=== PATIENT | male | born 1995 | race African-American/Black ===

== ENCOUNTER 2021-08-02 20:04 | Emergency (ER) | payer OTHER ==
[2021-08-02 21:11] LABS: BASOPHILS % (AUTO) 0.5 %; EOSINOPHILS % (AUTO) 0.6 %; HCT - HEMATOCRIT 42.9 % (42.0-52.0); HGB - HEMOGLOBIN 13.6 g/dL (14.0-18.0); LYMPHOCYTES # (AUTO) 2.1 10^3/uL (1.5-3.5); LYMPHOCYTES % (AUTO) 32.4 %; MEAN CORPUSCULAR HEMOGLOBIN 24.4 pg (27.0-31.0); MEAN CORPUSCULAR HGB CONC 31.7 g/dL (32.0-36.0); MEAN CORPUSCULAR VOLUME 76.9 fL (80.0-94.0); MEAN PLATELET VOLUME 10.6 fL (7.4-11.4); MONOCYTES # (AUTO) 0.7 10^3/uL (0.0-1.0); MONOCYTES % (AUTO) 10.3 %; NEUTROPHILS # (AUTO) 3.7 10^3/uL (1.5-6.6); NEUTROPHILS % (AUTO) 55.9 %; PLT - PLATELET COUNT 215 10^3/uL (130-450); RED BLOOD COUNT 5.58 10^6/uL (4.70-6.10); RED CELL DISTRIBUTION WIDTH 13.8 % (12.0-15.0); WHITE BLOOD COUNT 6.6 x10^3/uL (4.8-10.8)
[2021-08-02 21:22] LABS: ALBUMIN 4.8 g/dL (3.2-5.5); ALBUMIN/GLOBULIN RATIO 1.6 (1.0-2.2); BILIRUBIN,TOTAL 0.5 mg/dL (0.2-1.0); CALCIUM 9.7 mg/dL (8.5-10.3); CREATININE 1.4 mg/dL (0.6-1.2); POTASSIUM 3.8 mmol/L (3.5-5.0); TOTAL PROTEIN 7.8 g/dL (6.7-8.2)
[2021-08-02 21:25] LABS: BILIRUBIN,URINE NEGATIVE (NEGATIVE); GLUCOSE, URINE (UA) NEGATIVE (NEGATIVE); KETONES,URINE (UA) NEGATIVE (NEGATIVE); LEUKOCYTE ESTERASE, URINE NEGATIVE (NEGATIVE); NITRITE,URINE NEGATIVE (NEGATIVE); OCCULT BLOOD,URINE NEGATIVE (NEGATIVE); PROTEIN,URINE NEGATIVE (NEGATIVE); UROBILINOGEN,URINE 0.2 (NORMAL) E.U./dL (NORMAL)
[2021-08-02 21:26] LABS: CLARITY,URINE CLEAR (CLEAR)
--- NOTE | 2021-08-02 21:40 | ED Physician Documentation ---
PD HPI URI - Stated complaint Stated Complaint: ABD PX/HEADACHE/NAUSEA - Chief complaint Chief Complaint: General - History obtained from History obtained from: Patient - History of Present Illness Timing - onset: How many days ago (4) Timing duration: Days (4) Timing details: Gradual onset, Still present Associated symptoms: Chills, Sweats, Nasal congestion, Rhinorrhea, Productive cough, Chest pain, Dyspnea, Other (abdominal pain and fatigue) Contributing factors: Sick contact (room mate with COVID testing) Improves by: Rest, Medication Similar symptoms before: Has not had sx before Recently seen: Not recently seen - Additional information Additional information: 26-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 He has been taking some cold preparations for and this seems to have helped a bit. The patient has noted that he seems particularly fatigued when this is not normal for him. 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 He is immunized.He describes a cough with production of a slight amount of green phlegm. He has had chills and no fever.He periodically has had severe headache as well. Review of Systems Constitutional: reports: Chills, Myalgias, Fatigue. denies: Fever Eyes: denies: Decreased vision Ears: denies: Ear pain Nose: reports: Rhinorrhea / runny nose, Congestion Throat: denies: Sore throat Cardiac: denies: Chest pain / pressure, Palpitations Respiratory: reports: Dyspnea, Cough GI: reports: Abdominal Pain, Nausea. denies: Vomiting, Constipation, Diarrhea : denies: Dysuria, Frequency Skin: denies: Rash Musculoskeletal: denies: Neck pain, Back pain, Extremity pain Neurologic: denies: Generalized weakness, Focal weakness, Numbness PD PAST MEDICAL HISTORY - Past Medical History Cardiovascular: None Respiratory: None Neuro: Migraines Endocrine/Autoimmune: None GI: None : None Psych: None Musculoskeletal: Chronic back pain Derm: None - Past Surgical History Past Surgical History: No - Present Medications Home Medications: Ambulatory Orders Medication Instructions Recorded Confirmed Amox/Clav 875/125 [Augmentin] 1 each PO Q12H #20 tablet 08/02/21 - Allergies Allergies/Adverse Reactions: Allergies Allergy/AdvReac Type Severity Reaction Status Date / Time No Known Drug Allergies Allergy Verified 08/02/21 20:07 - Social History Does the pt smoke?: No Smoking Status: Never smoker Does the pt drink ETOH?: Yes Does the pt have substance abuse?: No - Immunizations Immunizations are current?: Yes PD ED PE NORMAL - Vitals Vital signs reviewed: Yes (Hypertensive) - General General: Alert and oriented X 3, No acute distress, Well developed/nourished - HEENT HEENT: Atraumatic, PERRL, EOMI, Pharynx benign, Other (Both TMs are inflamed with flattening of the landmarks on the right side.) - Neck Neck: Supple, no meningeal sign, No bony TTP - Cardiac Cardiac: RRR, No murmur - Respiratory Respiratory: No respiratory distress, Other (Faint rhonchi to the right upper lobe) - Abdomen Abdomen: Normal bowel sounds, Soft, Non tender, Non distended, No organomegaly - Back Back: No CVA TTP, No spinal TTP - Derm Derm: Normal color, Warm and dry, No rash - Extremities Extremities: No deformity, No edema - Neuro Neuro: Alert and oriented X 3, 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, No motor deficit, No sensory deficit, Normal speech Eye Opening: Spontaneous Motor: Obeys Commands Verbal: Oriented GCS Score: 15 - Psych Psych: Normal mood, Normal affect Results - Vitals Vitals: Vital Signs - 24 hr 08/02/21 08/02/21 20:07 20:10 Temperature 36.8 C Heart Rate 84 77 Respiratory 18 18 Rate Blood Pressure 152/86 H 152/88 H O2 Saturation 100 100 Oxygen O2 Source Room air - Labs Labs: Laboratory Tests 08/02/21 08/02/21 08/02/21 21:00 21:00 21:06 WBC 6.6 RBC 5.58 Hgb 13.6 L Hct 42.9 MCV 76.9 L MCH 24.4 L MCHC 31.7 L RDW 13.8 Plt Count 215 MPV 10.6 Neut # (Auto) 3.7 Lymph # (Auto) 2.1 [facility] # (Auto) 0.7 Eos # (Auto) 0.0 Baso # (Auto) 0.0 Absolute Nucleated RBC 0.00 Nucleated RBC % 0.0 Sodium 137 Potassium 3.8 Chloride 102 Carbon Dioxide 25 Anion Gap 10.0 BUN 27 H Creatinine 1.4 H Estimated GFR (MDRD) 61 L Glucose 90 Calcium 9.7 Total Bilirubin 0.5 AST 45 H ALT 44 Alkaline Phosphatase 73 Total Protein 7.8 Albumin 4.8 Globulin 3.0 Albumin/Globulin Ratio 1.6 Lipase 41 Urine Color YELLOW Urine Clarity CLEAR Urine pH 8.0 H Ur Specific [place] 1.020 Urine Protein NEGATIVE Urine Glucose (UA) NEGATIVE Urine Ketones NEGATIVE Urine Occult Blood NEGATIVE Urine Nitrite NEGATIVE Urine Bilirubin NEGATIVE Urine Urobilinogen 0.2 (NORMAL) Ur Leukocyte Esterase NEGATIVE Ur Microscopic Review NOT INDICATED Urine Culture Comments NOT INDICATED - Rads (name of study) chest Radiology: Prelim report reviewed PD MEDICAL DECISION MAKING - ED course Complexity details: reviewed results, re-evaluated patient, considered differential, d/w patient ED course: 26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 He is immunized and so far has mild symptoms. Covid testing has been performed and I have discussed with the patient a reason to return to the emergency department if his Covid test comes back positive to receive an infusion of Regeneron. Today we will treat him for otitis media with a single dose of dexamethasone and Augmentin. He does not have fever, hypoxia or physical exam findings to suggest covid pneumonia. He is expected to do well. We will place him in [facility] ntil his test results are back . Departure - Departure Disposition: 01 Home, Self Care Clinical Impression: Otitis media Qualifiers: Otitis media type: suppurative Chronicity: acute Laterality: bilateral Recurrence: non-recurrent Spontaneous tympanic membrane rupture: without spontaneous rupture Qualified Code(s): H66.003 - Acute suppurative otitis media without spontaneous rupture of ear drum, bilateral Condition: Stable Instructions: ED Otitis Media Acute Adult Follow-Up: OLGA BROWN MD [Primary Care Provider] - Prescriptions: Amox/Clav 875/125 [Augmentin] 1 each PO Q12H #20 tablet Comments: Efren today it looks like you have an infection in both of your middle ears. This infection typically will resolve sometimes on its own. Today we have prescribed some augmentin to combat this infection. [place] Your symptoms are consistent with COVID, a test is pending and you will need to be in quarantine until your Covid test comes back. If your test comes back positive and you are within the 10 days of onset of symptoms the recommendation is to come back to the emergency department during the day for infusion of Regeneron. This is an antibody to the Covid virus and will prevent the virus from further invasion just like your immunization has done. Forms: Activity restrictions
[2021-08-02] MEDS: AMOX/CLAV 875 MG/125 MG TABLET PO STA (21:41)
[2021-08-02] MEDS: DEXAMETHASONE 10 MG/ML VIAL PO STA (21:42)
[2021-08-02] MEDS: CHERRY SYRUP 10 ML UDC PO ONE (21:42)
[2021-08-02 22:10] VITALS: BP 132/71
--- NOTE | 2021-08-02 22:53 | XRAY Report ---
PROCEDURE: Chest 1 View X-Ray INDICATIONS: chest pain TECHNIQUE: One view of the chest was acquired. COMPARISON: None. FINDINGS: Surgical changes and devices: None. Lungs and pleura: No pleural effusions or pneumothorax. Lungs are clear. Mediastinum: Mediastinal contours appear normal. Heart size is normal. Bones and chest wall: No suspicious bony lesions. Overlying soft tissues appear unremarkable. IMPRESSION: Chest without acute cardiopulmonary abnormalities or focal airspace disease. Reviewed by: Drew Cruz MD on 08/02/2021 10:51 PM [facility] Approved by: Drew Cruz MD on 08/02/2021 10:51 PM [facility] Station ID: [id number]
== END 2021-08-02 22:10 | disposition home or self-care (01) ==
LOC: ED 20:04
DX: H66.003 Acute suppurative otitis media without spontaneous rupture of ear drum, bilateral (principal); R05.9 Cough, unspecified; R53.83 Other fatigue; Z20.822 Contact with and (suspected) exposure to COVID-19
CPT/HCPCS: 36415; 71045; 80053; 81003; 83690; 85025; 87635; 99283; 99284; A9270; 81001; 87086

== ENCOUNTER 2022-01-05 20:13 | Emergency (ER) | payer OTHER ==
[2022-01-05 20:20] VITALS: BP 128/75
--- NOTE | 2022-01-05 21:08 | ED Physician Documentation ---
PD HPI LOWER EXT INJURY - Stated complaint Stated Complaint: LEFT LEG PX - Chief complaint Chief Complaint: Trauma Ext - History obtained from History obtained from: Patient - History of Present Illness PD HPI LOW EXT INJURY LOCATION: Left, Knee Type of injury: Fall Where injury occurred: Other (roller skating rink) Timing - onset: How many hours ago (1) Timing - details: Abrupt onset Improved by: Rest Worsened by: Palpating Associated symptoms: Weakness Recently seen: Not recently seen - Additional information Additional information: Approximately 1 hour [employer]AM[employer] CUT[employer], patient was roller skating and in trying to avoid skating into another skater who had fallen in front of him, patient fell to floor, hyperextending left knee in the process; this was associated with sudden onset pain left posteromedial aspect of distal thigh. Also c/o weakness of left knee flexion. Denies other injury; did not hit head, did not have LOC Review of Systems Skin: reports: Reviewed and negative Musculoskeletal: reports: Extremity pain, Joint pain, Pain with weight bearing. denies: Neck pain, Back pain, Extremity swelling, Joint swelling PD PAST MEDICAL HISTORY - Past Medical History Cardiovascular: None Respiratory: None Neuro: Migraines Endocrine/Autoimmune: None GI: None : None Psych: None Musculoskeletal: Chronic back pain Derm: None - Past Surgical History Past Surgical History: No - Present Medications Home Medications: Ambulatory Orders Medication Instructions Recorded Confirmed No Known Home Medications 01/05/22 01/05/22 - Allergies Allergies/Adverse Reactions: Allergies Allergy/AdvReac Type Severity Reaction Status Date / Time No Known Drug Allergies Allergy Verified 01/05/22 20:20 - Social History Does the pt smoke?: No Smoking Status: Never smoker Does the pt drink ETOH?: Yes Does the pt have substance abuse?: No - Immunizations Immunizations are current?: Yes - POLST Patient has POLST: No PD ED PE NORMAL - Vitals Vital signs reviewed: Yes - General General: Alert and oriented X 3, No acute distress, Well developed/nourished - Extremities Extremities: No deformity, No edema, Other (TTP left posteromedial distal thigh without obvious palpable nor visible deformity. Full strength extension left knee, 4/5 left knee flexion although this also reproduces the pain) Results - Vitals Vitals: Oxygen O2 Source Room air - Rads (name of study) left knee xrays Radiology: Prelim report reviewed, See rad report PD MEDICAL DECISION MAKING - ED course Complexity details: reviewed results, re-evaluated patient, considered differential, d/w patient ED course: no abnormalities on plain-film xrays left knee. He has mild decreased strength of left knee flexion although this also reproduces pain, making it unclear if there is true weakness vs ROM limitation due to pain. Results of xrays reviewed with patient and diagnosis of sprain also discussed. We also discussed possibility of ligament or tendon injury which would be of increasing concern if his pain and ROM do not return to baseline within 4-5 days in which case he needs to pursue outpatient f/u with pmd for reevaluation Departure - Departure Disposition: Home, Self Care Clinical Impression: Thigh sprain Qualifiers: Encounter type: initial encounter Laterality: left Qualified Code(s): S73.102A - Unspecified sprain of left hip, initial encounter Condition: Good Instructions: ED Crutch Walking, ED Strain Muscle Ext Follow-Up: [facility] [Provider Group] - Within 3 Days Comments: The xrays do not show any injury. As we discussed, this does not rule out a soft tissue injury such as sprain/strain, or tendon/muscle tear or rupture. Follow up with your primary care provider Saturday for reevaluation. Forms: Activity restrictions Discharge Date/Time: 01/05/22 22:58
--- NOTE | 2022-01-05 22:08 | XRAY Report ---
PROCEDURE: Knee 3 View LT INDICATIONS: left distal thigh strain/pain TECHNIQUE: 3 views of the left knee were acquired. COMPARISON: None. FINDINGS: Bones: No fractures or dislocations. No suspicious bony lesions. Soft tissues: No joint effusion. No suspicious soft tissue calcifications. IMPRESSION: 1. No fracture or dislocation. Reviewed by: Chavez Lloyd MD on 01/05/2022 10:06 PM PDT Approved by: Chavez Lloyd MD on 01/05/2022 10:06 PM PDT Station ID: [id number]
== END 2022-01-05 22:58 | disposition home or self-care (01) ==
LOC: ED 20:13
DX: S73.102A Unspecified sprain of left hip, initial encounter (principal); W03.XXXA Other fall on same level due to collision with another person, initial encounter; Y93.51 Activity, roller skating (inline) and skateboarding
CPT/HCPCS: 99282; 99283